=== PATIENT | female | born 1930 | race Caucasian/White ===

== ENCOUNTER → 2016-06-28 | Outpatient (CLI) | payer MEDICARE, BC ==
[~2016-06-28] MED LIST: ASPI-558 PO; BENA1TAB PO; CALC-22 DOB; FAMO20TA79 PO; FISH1CAP47 PO; GLUC-147 PO; LUTE20CA3 PO; NAPR220C11 PO; PRAV20TA48 PO; PROP80CA PO; SENN1TAB PO; VIT1CAPS21 PO; [UNRECOGNIZED DRUG - CODE] PO
== END ==
LOC: WC.BC 08:28
DX: Z12.31 Encounter for screening mammogram for malignant neoplasm of breast (principal); C50.911 Malignant neoplasm of unspecified site of right female breast; Z98.890 Other specified postprocedural states
CPT/HCPCS: 77063; G0202

== ENCOUNTER 2017-06-19 20:07 | Inpatient (IN) ==
[2017-06-19] MEDS ORDERED: HALOPERIDOL 5 MG/ML INJECTION IM PRN (20:58)
[2017-06-19] MEDS ORDERED: HALOPERIDOL 0.5 MG TABLET PO PRN (20:58)
[2017-06-19] MEDS ORDERED: LORazepam 0.5 MG TABLET PO PRN (20:58)
[2017-06-19 20:59] VITALS: BMI 24.0
[2017-06-19] MEDS: MIRTAZAPINE 15 MG TABLET PO SCH (21:15)
[2017-06-19] MEDS: PROPRANOLOL 20 MG TABLET PO SCH (21:15)
[2017-06-19] MEDS ORDERED: FALL RISK - PHARMACY CONSULT XX ONE ×2 (21:20)
[2017-06-19] MEDS: HYDROCODONE/APAP 5mg/325mg TABLET PO PRN (21:40)
[2017-06-20] MEDS: HYDROCODONE/APAP 5mg/325mg TABLET PO PRN ×3 (08:20→20:28)
[2017-06-20] MEDS: AMLODIPINE 10 MG TABLET PO SCH (09:35)
[2017-06-20] MEDS: BENAZEPRIL 20 MG TABLET PO SCH (09:36)
[2017-06-20] MEDS: PROPRANOLOL 20 MG TABLET PO SCH ×2 (09:36→20:27)
[2017-06-20] MEDS: FAMOTIDINE 20 MG TABLET PO SCH (09:36)
[2017-06-20] MEDS: ASPIRIN *EC* 81 MG TABLET PO SCH (09:52)
[2017-06-20] MEDS: ACETAMINOPHEN 325 MG TABLET PO PRN ×2 (11:09→19:20)
--- NOTE | 2017-06-20 12:38 | History & Physical Report ---
History of Present Illness Date: 06/20/17 Chief complaint: depression HPI: Patient is an 87-year-old female who was recently admitted acutely following a colonoscopy and rectal biopsy by Dr. Mims on 06/17/17 due to weakness and not being able to return to her assisted living facility. While on the surgical floor, she demonstrated significant signs of depression prompting the referral to [facility]. Patient is gaining some strength, but is refusing to eat at times and continues to appear significantly depressed. There is also some concern about vascular dementia per patient's son. Patient was seen in her room this morning following an attempt to use the bathroom. Nurses note the patient has not voided much since she has been in the [facility]. Bladder scan post void was greater than 999 mL. Patient will answer yes/no questions but will not elaborate. She denies pain at present. She had indicated previously while on the surgical unit that if she does have cancer , she does not wish to proceed with any treatment. She has indicated that she is ready to . Review of Systems All systems PM: 10-point ROS was reviewed, no additional remarkable complaints except (urinary retention) Past Medical History S/p colonoscopy/rectal bx by Dr. 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 Lymph node biopsy pending Hypokalemia (POA) Hyperlipidemia Hypertension GERD Chronic back pain Glaucoma History of breast cancer Hearing loss Macular degeneration Surgical History: Hysterectomy. Back Surgery, Lamenectomy 2002. Breast Biopsy / lumpectomy 2003. Hip Replacement 2007 Family History: Family History (Last Reviewed 06/10/17 @ 09:43 by Rosa Reed [facility]) Sister Cancer Family History Updates: reviewed - Social History Smoking status: Never smoker Medications Home Medications Medication Instructions Recorded Confirmed Type Famotidine [Pepcid] 20 mg PO DAILY #0 12/28/12 06/17/17 History Amlodipine [Norvasc] 10 mg PO DAILY 06/14/17 06/17/17 History Aspirin [Aspirin EC] 81 mg PO DAILY 06/14/17 06/17/17 History Beta-Carotene(A)-Vits C,E/Mins 1 tab PO DAILY 06/14/17 06/17/17 History [Vision Vitamins] Calcium Carbonate/Vitamin D3 1 tab PO DAILY 06/14/17 06/17/17 History [Calcium 600-Vit D3 800 Caplet] Ondansetron [Zofran Odt] 1 tab PO Q6HR PRN #30 tab 06/14/17 06/17/17 Rx Pravastatin [Pravachol] 20 mg PO DAILY 06/14/17 06/17/17 History Propranolol [Inderal] 20 mg PO BID 06/14/17 06/17/17 History Acetaminophen [Tylenol] 500 mg PO Q6H PRN tab 06/19/17 Rx Benazepril [Lotensin] 20 mg PO DAILY tab 06/19/17 Rx Hydrocodone/APAP 10/325 [[place] 1 tab PO QID PRN #20 tab 06/19/17 Rx 10/325] Mirtazapine [Remeron] 15 mg PO HS tab 06/19/17 Rx Senna + Docusate [Senna Plus 2 each PO HS #20 tab 06/19/17 Rx Tablet] Allergies Allergy/AdvReac Type Severity Reaction Status Date / Time Tetanus Vaccines and Toxoid Allergy Verified 06/17/17 09:08 Exam Vital Signs: Temperature 98.1 F 06/20/17 08:24 Pulse Rate 104 H 06/20/17 08:24 Respiratory Rate 22 06/20/17 08:24 Blood Pressure 152/95 H 06/20/17 08:24 Pulse Oximetry 97 06/20/17 08:24 Height/Weight/BMI: Height 1.63 m Weight 63.3 kg Body Mass Index 24.0 - Constitutional Present: no acute distress, well nourished, well developed - Routine HEENT Exam Head: Present: normocephalic, atraumatic - Routine Neck Exam Present: supple. Absent: lymphadenopathy, thyromegaly - Routine Respiratory Exam Present: CTA bilaterally. Absent: wheezes - Routine Cardiovascular Exam Present: RRR, no murmur - Routine Abdominal Exam Present: soft, normoactive bowel sounds, tenderness (suprapubic). Absent: distended - Routine Extremities Exam Present: no edema, normal capillary refill - Routine Skin Exam Present: dry, warm - Routine Neurological Exam Present: alert, CN II-XII intact, moving all extremities. Absent: tremors - Routine Psychiatric Exam Present: normal affect, cooperative Assessment and Plan (1) Rectal mass Current visit: No Status: Acute (2) Major depressive disorder Current visit: No Status: Acute Assessment and Plan: Assessment Situational depression. Generalized weakness following medical procedure S/p colonoscopy/rectal bx by Dr. 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 Lymph node biopsy pending Hyperlipidemia Urinary retention-POA Hypertension GERD Chronic back pain Glaucoma History of breast cancer Hearing loss Macular degeneration Plan Agree with admission to the [facility] Unit for psychiatric evaluation and treatment by Dr. Herron and to provide a safe environment. Continue to work with physical therapy. She is making gains. Pathology is resulted, but the lymph node biopsy is still pending. Pressure and pulse have been elevated since last evening. Given her recent move from surgical floor to [facility], will continue to monitor for now. She is currently on amlodipine, benazepril, and propranolol. Continue to monitor post void residual w/ straight cath if necessary. If she continues to need catheterization, will consider placing Acuña. Check urinalysis. Care to return to [facility]ue[facility] on dismissal. Resuscitation Status: Do Not Resuscitate - Physician Narrative Physician: Geneva Calvin MD Narrative: Date: 06/20/17 Time: 2029 I have independently evaluated and examined this patient. I reviewed the chart, the patient's history, and the [employer]ANUT PICKER/PA's documented findings as above. We discussed and formulated the assessment and plan as above with additions as below: Mrs. Paula's note from her acute hospitalization. Currently she reports no significant pain. She denies preceding dysuria or difficulty urinating but reports she gets she was having some. NAD, smiles occasionally, soft spoken but is interacting with less reluctance than she did 2 days ago Respirations nonlabored, breath sounds clear; regular cardiac rhythm Kyphotic, significant degenerative changes in the small joints of the hands Abdomen soft, nontender except mild suprapubic tenderness MAEW, power symmetric, mild tremor noted and greater with her arms outstretched in the right arm than the left; no cogwheeling (patient reports having previously been on medication for tremor) Sensation intact 4 extremities Pyuria noted however multiple epithelial cells also present in sample, nitrate negative. Given urinary retention which is new from acute hospitalization ( although may have been evolving tear based on nursing report provided today) Will treat with antibiotics and reassess. Patient is interacting more readily than she did 2 days ago. Results of pathology noted-adenocarcinoma of the colon metastatic to left inguinal lymph node. Hospital Course Summary Disclaimer: The visit summary below is not to be considered part of the above Progress Note. Hospital Course: 06/20/17-hospitalist consult Agree with admission to the [facility] Unit for psychiatric evaluation and treatment by Dr. Herron and to provide a safe environment. Continue to work with physical therapy. She is making gains. Pathology is resulted, but the lymph node biopsy is still pending. Pressure and pulse have been elevated since last evening. Given her recent move from surgical floor to [facility], will continue to monitor for now. She is currently on amlodipine, benazepril, and propranolol. Care to return to [facility]ue[facility] APR[facility] on dismissal. Addendum entered and electronically signed by Marizol Waterman APRN 06/20/17 17: 49: Patient has had 2 episodes of significant post-void urinary retention since arriving to [facility]. A Acuña was inserted and we will start bladder training in the morning. In addition, UA was positive for UTI and Keflex 500 mg BID was initiated. Urine culture was sent, so antibiotics may need further adjustment pending culture results.
--- NOTE | 2017-06-20 15:16 | 24 Hour Neuropsychiatic Eval ---
Date of Admission: 06/19/17 20:07 Chief complaint: "If I felt good I wouldn't be here" History of Present Illness: Patient is an 87-year-old , retired female who was admitted to [facility] on 06/19/17 for psychiatric evaluation and stabilization. Patient was recently diagnosed with a colon mass (likely cancer) and family reports cine then, she has become more depressed, stopped participating in cares , has decreased PO intake. There is some question as to whether patient attempted suicide because family found an empty [place] bottle -- it is not clear if patient intentionally did this or was just overusing medication. She frequently focuses on her pain meds since admission to our unit. On interview, patient is very hard of hearing and reports this affects her mood. Nursing staff attempting to arrange for patient's hearing aids to be brought to unit. Even when I speak loudly into her ear, she seems to frequently not understand what I am asking her. She says she is here because her kids wanted her to come and she is not sure why she was concerned. Though she denies SI, she has been talking about frequently since admission. She complains of pain all over and back pain. She states, "When I was well, I was happy." She denies any HI, AVH. Depression: Loss of Interest in Activities, Isolating Oneself From Friends and Family, Loss of Energy, Recurrent Thoughts of or Suicide, Changes in Appetite, Back Pain, Hopelessness, Unhappiness PFSH Patient Stated Medical History Dementia Yes Glaucoma Yes Hearing Loss Yes Macular Degeneration Yes Hypertension Yes Gastroesophageal Reflux Yes Disease Other GI Yes: rectal mass, current Clinic Medical History (Last Updated 06/10/17 @ 10:49 by Paula Eason APRN) Debility (Acute Medical) HTN (hypertension) (Acute Medical) Macular degeneration (Acute Medical) Memory loss (Acute Medical) Surgical History: Hysterectomy. Back Surgery, Lamenectomy 2002. Breast Biopsy / lumpectomy 2003. Hip Replacement 2007 Family History: Family History (Last Reviewed 06/10/17 @ 09:43 by NINFA Hall) Sister Cancer Family History Updates: reviewed - Social History Smoking status: Never smoker Substance use type: does not use Alcohol intake frequency: does not drink Current residence: Assisted Living Social history: Strengths: has supportive family, is able to express self verbally Review of Systems ROS unobtainable: other (Limited due to patient being very [place]; complains of back pain and "pain all over") - Psychiatric Psychiatric: Present: as per [facility] Mental Status Exam Vitals: Last Vital Signs Temp 98.1 F 06/20/17 08:24 Pulse 104 H 06/20/17 08:24 Resp 22 06/20/17 08:24 BP 152/95 H 06/20/17 08:24 Pulse Ox 97 06/20/17 08:24 Height: 1.63 m Weight: 63.3 kg - Mental Status Exam Muscle Strength/Tone: Weak Dressing: Casual Grooming: Fair Attitude: Guarded Motor Activity: Retardation Eye Contact: Poor Speech: Slowed Volume: Normal Rhythm: Appropriate Rhythm Sensory: Alert Orientation: Disoriented to time (able to name month/year), Oriented to person, Oriented to place Mood: Depressed Affect: Sad, Depressed Rate of Thoughts: Other (difficult to assess with [place]) Thought Organization: Organized Associations: Intact Abstract Reasoning: Poor abstract reasoning Thought Content: Ruminations, Hopelessness, Helplessness, Somatic Concerns Perception/Psychotic: Perception Normal Language: Naming Intact Fund of Knowledge: Other (decreased, difficult to fully assess with [place] - will do SLUMS) Memory: Poor-recent Suicidal Ideation: Other (Denies but frequently talks about , possible suicide attempt prior to admission) Homicidal Ideation: Denies Insight: Impaired Judgement: Impaired Impulse Control: Poor Assessment and Plan (1) Major depressive disorder, severe Problem details: R/O Mood disorder secondary to [facility] R/O Suicide attempt prior to admission R/O Opiate use disorder Current visit: Yes Status: Acute Agree with admission to [facility] for psychiatric evaluation and stabilization. Maintain safety and elopement precautions. Patient is a limited historian, will obtain further collateral from family. Plan to consult surgery so may have discussion with family/patient about goals of care and treatment options Standard labs on admission: CBC, CMP, TSH, Vitamin B12 and folate. Patient had CT scan shortly prior to admission. Continue Remeron 15mg PO q HS for the time being; will likely increase soon as long as patient is sleeping well.
--- NOTE | 2017-06-20 17:35 | General Surgery Consult Note ---
Consult date: 06/20/17 Attending Physician: Sylvia Ny MD Reason for consult: other (rectal mass) [facility] Patient Stated Medical History Dementia Yes Glaucoma Yes Hearing Loss Yes Macular Degeneration Yes Hypertension Yes Gastroesophageal Reflux Yes Disease Other GI Yes: rectal mass, current Clinic Medical History (Last Updated 06/10/17 @ 10:49 by Paula Eason APRN) Debility (Acute Medical) HTN (hypertension) (Acute Medical) Macular degeneration (Acute Medical) Memory loss (Acute Medical) Surgical History: Hysterectomy. Back Surgery, Lamenectomy 2002. Breast Biopsy / lumpectomy 2003. Hip Replacement 2007. Colonoscopy and biopsy rectal mass Felicita Family History: Family History (Last Reviewed 06/10/17 @ 09:43 by NINFA Hall) Sister Cancer Family History Updates: reviewed - Social History Smoking status: Never smoker Substance use type: does not use Alcohol intake frequency: does not drink Housing: assisted living facility Household members: spouse (has been recently placed in more advanced care [place] away from [facility]) Current residence: Assisted Living Medications Home Medications Medication Instructions Recorded Confirmed Type Famotidine [Pepcid] 20 mg PO DAILY #0 12/28/12 06/17/17 History Amlodipine [Norvasc] 10 mg PO DAILY 06/14/17 06/17/17 History Aspirin [Aspirin EC] 81 mg PO DAILY 06/14/17 06/17/17 History Beta-Carotene(A)-Vits C,E/Mins 1 tab PO DAILY 06/14/17 06/17/17 History [Vision Vitamins] Calcium Carbonate/Vitamin D3 1 tab PO DAILY 06/14/17 06/17/17 History [Calcium 600-Vit D3 800 Caplet] Ondansetron [Zofran Odt] 1 tab PO Q6HR PRN #30 tab 06/14/17 06/17/17 Rx Pravastatin [Pravachol] 20 mg PO DAILY 06/14/17 06/17/17 History Propranolol [Inderal] 20 mg PO BID 06/14/17 06/17/17 History Acetaminophen [Tylenol] 500 mg PO Q6H PRN tab 06/19/17 Rx Benazepril [Lotensin] 20 mg PO DAILY tab 06/19/17 Rx Hydrocodone/APAP 10/325 [[place] 1 tab PO QID PRN #20 tab 06/19/17 Rx 10/325] Mirtazapine [Remeron] 15 mg PO HS tab 06/19/17 Rx Senna + Docusate [Senna Plus 2 each PO HS #20 tab 06/19/17 Rx Tablet] Allergies Allergy/AdvReac Type Severity Reaction Status Date / Time Tetanus Vaccines and Toxoid Allergy Verified 06/17/17 09:08 Review of Systems 10-point ROS: negative except for HPI and the following: - Eyes/Ears/Nose/Throat Ear Nose Throat: Present: hearing problems - Gastrointestinal Gastrointestinal: Present: blood in stools (rectal mass,), other (poor appetite , rectal pain) - Genitourinary Females Only: Present: other (urinary retention) - Musculoskeletal Musculoskeletal: Present: back pain, joint pain - Neurological Neurological: Present: muscle weakness - Psychiatric Psychiatric: Present: depression, thought of suicide (possibly) - Hematologic/Lymphatic Hematologic/Lymphatic: Present: easy bruising - Vital Signs Last Vital Signs Temp 98.3 F 06/20/17 16:00 Pulse 80 06/20/17 16:00 Resp 18 06/20/17 16:00 BP 123/73 06/20/17 16:00 Pulse Ox 95 06/20/17 16:00 Hospital Course Summary Disclaimer: The visit summary below is not to be considered part of the above Progress Note. Hospital Course: 06/20/17-hospitalist consult Agree with admission to the [facility] for psychiatric evaluation and treatment by Dr. Herron and to provide a safe environment. Continue to work with physical therapy. She is making gains. Pathology is resulted, but the lymph node biopsy is still pending. Pressure and pulse have been elevated since last evening. Given her recent move from surgical floor to [facility], will continue to monitor for now. She is currently on amlodipine, benazepril, and propranolol. Care to return to [facility] on dismissal.
[2017-06-20] MEDS: PRAVASTATIN 20 MG TABLET PO SCH (20:27)
[2017-06-20] MEDS: MIRTAZAPINE 15 MG TABLET PO SCH (20:27)
[2017-06-20] MEDS: SENNA + DOCUSATE TABLET PO SCH (20:37)
[2017-06-21] MEDS: HYDROCODONE/APAP 5mg/325mg TABLET PO PRN (02:27)
[2017-06-21] MEDS: FAMOTIDINE 20 MG TABLET PO SCH (08:06)
[2017-06-21] MEDS: PROPRANOLOL 20 MG TABLET PO SCH ×2 (08:06→20:08)
[2017-06-21] MEDS: AMLODIPINE 10 MG TABLET PO SCH (08:06)
[2017-06-21] MEDS: ASPIRIN *EC* 81 MG TABLET PO SCH (08:06)
[2017-06-21] MEDS: BENAZEPRIL 20 MG TABLET PO SCH (08:06)
[2017-06-21] MEDS: SENNA + DOCUSATE TABLET PO SCH ×2 (08:14→20:09)
[2017-06-21] MEDS ORDERED: HYDROCODONE/APAP 5mg/325mg TABLET PO PRN (08:24)
--- NOTE | 2017-06-21 08:50 | Pharmacy Consult ---
Pharmacy Consult-Other Meds - Consult Information SHABNAM Jo called because patient was concerne about not receiving her EYE VITAMIN. I recommended out eye vitamin, Ocuvite (generic)., for the duratoin of the patient stay. Thanks, Russ Pederson, Pharmacist.
--- NOTE | 2017-06-21 10:06 | General Surgery Progress Note ---
Subjective Narrative: Visiting with Marie last evening, she is informed that the colonoscopy rectal biopsy did return as a cancer as well as the lymph node biopsy showed metastasis. She did not respond when told this information. - Vital Signs Last Vital Signs Temp 97.8 F 06/21/17 08:00 Pulse 112 H 06/21/17 08:00 Resp 18 06/21/17 08:00 BP 130/87 06/21/17 08:00 Pulse Ox 97 06/21/17 08:00 - Laboratory Result Diagrams: 06/21/17 06:58 06/21/17 06:58 - Microbiogy Microbiology 06/20/17 17:09 Urine, Voided (Cc/notcc) Urine Culture - Preliminary Culture Initiated - Results Pending Hospital Course Summary Disclaimer: The visit summary below is not to be considered part of the above Progress Note. Hospital Course: 06/20/17-hospitalist consult Agree with admission to the [facility] Unit for psychiatric evaluation and treatment by Dr. Herron and to provide a safe environment. Continue to work with physical therapy. She is making gains. Pathology is resulted, but the lymph node biopsy is still pending. Pressure and pulse have been elevated since last evening. Given her recent move from surgical floor to [facility], will continue to monitor for now. She is currently on amlodipine, benazepril, and propranolol. Care to return to [facility] Guevara APRN on dismissal.
--- NOTE | 2017-06-21 14:05 | Neuropsych Progress Note ---
[facility] Subjective Date: 06/21/17 - Sujective/Severity of Illness Medications: Acetaminophen (Tylenol) 325 - 650 mg PO Q5H PRN PRN Reason: Discomfort Last Admin: 06/20/17 19:20 Dose: 650 mg Hydrocodone Bitart/Acetaminophen ([place] 5/325) 1 - 2 tab PO Q6H PRN PRN Reason: Pain Last Admin: 06/21/17 09:22 Dose: 2 tab Amlodipine Besylate (Norvasc) 10 mg PO DAILY [facility] Last Admin: 06/21/17 08:06 Dose: 10 mg Aspirin (Ecotrin) 81 mg PO DAILY [facility] Last Admin: 06/21/17 08:06 Dose: 81 mg Benazepril HCl (Lotensin) 20 mg PO DAILY [facility] Last Admin: 06/21/17 08:06 Dose: 20 mg Cephalexin HCl (Keflex 500 Mg) 500 mg PO Q12HR [facility] Last Admin: 06/21/17 08:06 Dose: 500 mg Famotidine (Pepcid) 20 mg PO DAILY [facility] Last Admin: 06/21/17 08:06 Dose: 20 mg Haloperidol (Haldol) 0.5 mg PO Q6H PRN PRN Reason: Extreme agitation Haloperidol Lactate (Haldol) 0.5 mg IM Q6H PRN PRN Reason: Extreme agitation Lorazepam (Ativan) 0.5 mg PO Q6H PRN PRN Reason: Extreme agitation Last Admin: 06/19/17 21:40 Dose: 0.5 mg Lorazepam (Ativan Inj) 0.5 mg IM Q6H PRN PRN Reason: Extreme agitation Mirtazapine (Remeron) 15 mg PO HS [facility] Last Admin: 06/20/17 20:27 Dose: 15 mg Multivitamins/Minerals (Vision) 1 tab PO DAILY [facility] Pravastatin Sodium (Pravachol) 20 mg PO [facility] Last Admin: 06/20/17 20:27 Dose: 20 mg Propranolol HCl (Inderal) 20 mg PO BID [facility] Last Admin: 06/21/17 08:06 Dose: 20 mg Senna/Docusate Sodium (Senna Plus Tablet) 2 tab PO BID [facility] Last Admin: 06/21/17 08:14 Dose: 2 tab Subjective: Patient chart reviewed. Patient sleeping soundly at time of rounds. Nursing staff reports she has had significant pain and has refused to use her hearing aids though available. She has otherwise been cooperative with no significant behavioral difficulties. She has talked a lot about wanting to and having a poor quality of life with impaired hearing and vision. She has been adherent with medications. No psychotropic PRNs required in past 24 hours. I also spoke with son/DPOA and reviewed note from surgery, as well as treatment of her depression. He would like to discuss prognosis with the surgery team but states they are likely leaning towards Hospice consult. Start Time: 11:00 Stop Time: 11:20 Mental Status Exam Vitals: Last Vital Signs Temp 97.8 F 06/21/17 08:00 Pulse 112 H 06/21/17 08:00 Resp 18 06/21/17 08:00 BP 130/87 06/21/17 08:00 Pulse Ox 97 06/21/17 08:00 Height: 1.63 m Weight: 63.1 kg - Mental Status Exam Muscle Strength/Tone: Weak Dressing: Casual Grooming: Fair Attitude: Guarded Motor Activity: Retardation Eye Contact: Poor Speech: Slowed Volume: Normal Rhythm: Appropriate Rhythm Orientation: Disoriented to time (able to name month/year), Oriented to person, Oriented to place Mood: Depressed Affect: Depressed Rate of Thoughts: Other (difficult to assess with LUMMI) Thought Organization: Organized Associations: Intact Abstract Reasoning: Poor abstract reasoning Thought Content: Ruminations, Hopelessness, Helplessness, Somatic Concerns Perception/Psychotic: Perception Normal Language: Naming Intact Fund of Knowledge: Other (decreased, difficult to fully assess with LUMMI - will do SLUMS) Memory: Poor-recent Suicidal Ideation: Other (Denies but frequently talks about , possible suicide attempt prior to admission) Homicidal Ideation: Denies Insight: Impaired Judgement: Impaired Impulse Control: Poor - Laboratory Result Diagrams: 06/21/17 06:58 06/21/17 06:58 Laboratory Results - last 24 hr 06/20/17 06/21/17 06/21/17 17:09 06:58 06:58 WBC 6.9 RBC 3.69 L Hgb 11.5 L Hct 34.9 L MCV 94.6 MCH 31.2 MCHC 33.0 RDW Std Deviation 44.1 Plt Count 371 MPV 8.2 L Immature Gran % (Auto) 0.1 Neut % (Auto) 70.0 H Lymph % (Auto) 16.6 L [place] % (Auto) 9.3 H Eos % (Auto) 3.6 Baso % (Auto) 0.4 Neut # (Auto) 4.8 Lymph # (Auto) 1.1 [place] # (Auto) 0.6 Eos # (Auto) 0.3 Baso # (Auto) 0.0 Abs Immat Gran (auto) 0.01 Turbidity < 20 Sodium 141 Potassium 3.8 Chloride 103 Carbon Dioxide 29 Anion Gap 9 BUN 11.0 Creatinine 0.5 L GFR Calculation 117 BUN/Creatinine Ratio 22 Glucose 133 H Calculated Osmolality 272 Calcium 9.2 Icterus Index < 2 Specimen Hemolysis < 15 Ur Collection Type Urine, void-cc/notcc Urine Color Yellow Urine Clarity Cloudy Urine pH 7.0 Ur Specific [place] 1.010 L Urine Protein Negative Urine Glucose (UA) Negative Urine Ketones Trace A Urine Occult Blood 2+ A Urine Nitrate Negative Urine Bilirubin Negative Urine Urobilinogen 0.2 Ur Leukocyte Esterase 2+ A Urine RBC 10-20 H Urine WBC 10-20 H Ur Squamous Epith Cells >50 Urine Bacteria 2+ H Ur Culture Indicated? Cult reflexed &setup Assessment and Plan (1) Major depressive disorder, severe Problem details: R/O Mood disorder secondary to [facility] R/O Suicide attempt prior to admission R/O Opiate use disorder Current visit: Yes Status: Acute Continue current care; son/DPIRINA is requesting to speak with surgery team ( notified) and considering Hospice consult after that conversation. Hospital Course Summary Disclaimer: The visit summary below is not to be considered part of the above Progress Note. Hospital Course: 06/20/17-hospitalist consult Agree with admission to the [facility] for psychiatric evaluation and treatment by Dr. Herron and to provide a safe environment. Continue to work with physical therapy. She is making gains. Pathology is resulted, but the lymph node biopsy is still pending. Pressure and pulse have been elevated since last evening. Given her recent move from surgical floor to [facility], will continue to monitor for now. She is currently on amlodipine, benazepril, and propranolol. Care to return to [facility] on dismissal. 06/20/17 Psych: Continue Remeron, await surgery consult. 06/21/17 Psych: Continue current care; son/DPIRINA is requesting to speak with surgery team (notified) and considering Hospice consult after that conversation.
--- NOTE | 2017-06-21 16:07 | Progress Note ---
Progress Note: Pt requesting her "eye vitamin." Ocuvite is ordered. Dr. Ny decreased pt 's pain meds, but nurses report her pain has not seemed controlled overnight. This am her was changed to [place] 5, 1-2 q 6 hrs prn. Nursing reminded not to exceed 4gm of acetaminophen. Later this afternoon nurses are reporting pt's pain med isn't holding the full 6 hrs, will change to [place] 10 and give q 4 hrs. She had to be straight cathed twice yesterday with large volume PVR's, so tabares was placed. UA was consistent with infection and keflex was initiated. Bladder training was initiated today. Will plan to DC tabares tomorrow. Dr Herron has discussed cancer dx with family and surgery team has relayed information to patient. Family plans to talk to surgery to make final decisions.
--- NOTE | 2017-06-21 16:18 | Consultation ---
DATE OF CONSULTATION 06/21/2017 FINDINGS Mrs. Paula is an 87-year-old female who is known to my surgical practice. I was asked to see the patient today in regards to her known rectal mass. Patient currently is on our [facility] as a result of situational depression. The patient was eating lunch upon my arrival. She did communicate with me appropriately. Apparently over the last couple of days, she has been fairly nonverbal. The patient stated she was experiencing pain within the perianal region. She did elude that she did not want to have anything done during our brief discussion today. The patient was at a table with other patients and therefore the interview process and discussion was fairly limited for privacy purposes. PAST MEDICAL HISTORY Performed by my nurse practitioner, Dami Eason. PAST SURGICAL HISTORY Performed by my nurse practitioner, Dami Eason. MEDICATIONS Performed by my nurse practitioner, Dami Eason. ALLERGIES Performed by my nurse practitioner, Dami Eason. SOCIAL HISTORY Performed by my nurse practitioner, Dami Eason. FAMILY HISTORY Performed by my nurse practitioner, Dami Eason. REVIEW OF SYSTEMS Performed by my nurse practitioner, Dami Eason. PHYSICAL EMANATION GENERAL: Mrs. Paula is an 87-year-old female who this afternoon did not appear to be in acute distress and was in fairly good spirits and did communicate appropriately during the interview process. VITALS: Temperature 97.8. Pulse 112. Respirations 18. Blood pressure 130/ 87. SaO2 97% on room air. HEENT: Normocephalic. Pupils are equally round and react to light and accommodation. NECK: Supple without lymphadenopathy. CHEST: Clear to auscultation bilaterally. HEART: Regular rate and rhythm. Normal S1, S2, without gallops, murmurs or clicks. ABDOMEN: Palpation of the abdomen reveals it to be soft and nontender. I do not appreciate any evidence for hepatosplenomegaly nor abnormal masses. EXTREMITIES: Without clubbing, cyanosis, or edema. NEURO: Cranial nerves II-XII grossly intact. Patient without focal, motor, or sensory deficits. LABORATORY/RADIOGRAPHIC EVALUATION I did review my biopsies performed upon her colonoscopy as well as from the fine -needle aspiration. She does have an invasive adenocarcinoma involving the anal canal/distal rectum. She also had several lesions beyond the anal verge upon the buttock region that were also biopsied and returned as invasive moderately differentiated adenocarcinoma. Furthermore the fine needle aspiration from the enlarged left inguinal lymph nodes also returned revealing adenocarcinoma consistent with metastatic disease. I reviewed her CT scan of her head, chest, abdomen and pelvis. One could see some thickening along the left lateral wall but there was no evidence for gross metastatic disease. Visualization of the pelvis was somewhat limited as a result of artifact from associated hardware. ASSESSMENT 87-year-old female with metastatic invasive rectal adenocarcinoma. PLAN I do see that the patient is having some urinary issues. It is my intuition that she may have some involvement of her bladder with this tumor resulting in some difficulty with her urination. I do see that she currently has indwelling Acu[place] catheter and was placed on antibiotics. I have reviewed admission history and physical to the [facility] as well as additional notes. I have reviewed prior pathology report and radiographic results as stated above. At this time, I informed the patient that I will try to come back at a later time when she is in her room and we can have more of a private discussion. Hopefully there will be some family members present as well so that further discussion can be undertaken in regards to how we are going to proceed with this newly diagnosed metastatic adenocarcinoma involving her rectum. One option may be just to obtain hospice and focus on the quality of her life that is remaining. Her rectal cancer is not near obstructing at this juncture in time and therefore I do not feel that surgical intervention is imminent at this time. The other option of course would be to proceed with chemo/radiation given her diagnosis and apparent localized disease to her pelvis. If the patient is having a component of some perianal leakage, one may wish to apply some Calmoseptine to the perianal region to provide as a skin barrier. I will try to come back at a later time and have further discussion with the patient and family. BRI
[2017-06-21] MEDS: MULTI-VIT + MINERAL (Opti-gen) TABLET PO SCH (16:22)
[2017-06-21] MEDS: HYDROCODONE/APAP 10 MG/325 MG TABLET PO PRN ×2 (16:22→20:09)
[2017-06-21] MEDS: PRAVASTATIN 20 MG TABLET PO SCH (20:08)
[2017-06-21] MEDS: MIRTAZAPINE 15 MG TABLET PO SCH (20:08)
[2017-06-22] MEDS: MULTI-VIT + MINERAL (Opti-gen) TABLET PO SCH (09:22)
[2017-06-22] MEDS: BENAZEPRIL 20 MG TABLET PO SCH (09:22)
[2017-06-22] MEDS: FAMOTIDINE 20 MG TABLET PO SCH (09:22)
[2017-06-22] MEDS: ASPIRIN *EC* 81 MG TABLET PO SCH (09:22)
[2017-06-22] MEDS: AMLODIPINE 10 MG TABLET PO SCH (09:22)
[2017-06-22] MEDS: HYDROCODONE/APAP 10 MG/325 MG TABLET PO PRN ×3 (09:23→19:54)
[2017-06-22] MEDS: SENNA + DOCUSATE TABLET PO SCH ×3 (09:23→20:55)
--- NOTE | 2017-06-22 12:29 | Neuropsych Progress Note ---
[facility] Subjective Date: 06/22/17 - Sujective/Severity of Illness Medications: Acetaminophen (Tylenol) 325 - 650 mg PO Q5H PRN PRN Reason: Discomfort Last Admin: 06/20/17 19:20 Dose: 650 mg Hydrocodone Bitart/Acetaminophen ([place] 10/325) 1 tab PO Q4H PRN PRN Reason: Pain Last Admin: 06/22/17 09:23 Dose: 1 tab Amlodipine Besylate (Norvasc) 10 mg PO DAILY [facility] Last Admin: 06/22/17 09:22 Dose: 10 mg Aspirin (Ecotrin) 81 mg PO DAILY [facility] Last Admin: 06/22/17 09:22 Dose: 81 mg Benazepril HCl (Lotensin) 20 mg PO DAILY [facility] Last Admin: 06/22/17 09:22 Dose: 20 mg Cephalexin HCl (Keflex 500 Mg) 500 mg PO Q12HR [facility] Last Admin: 06/22/17 09:22 Dose: 500 mg Famotidine (Pepcid) 20 mg PO DAILY [facility] Last Admin: 06/22/17 09:22 Dose: 20 mg Haloperidol (Haldol) 0.5 mg PO Q6H PRN PRN Reason: Extreme agitation Haloperidol Lactate (Haldol) 0.5 mg IM Q6H PRN PRN Reason: Extreme agitation Lorazepam (Ativan) 0.5 mg PO Q6H PRN PRN Reason: Extreme agitation Last Admin: 06/19/17 21:40 Dose: 0.5 mg Lorazepam (Ativan Inj) 0.5 mg IM Q6H PRN PRN Reason: Extreme agitation Mirtazapine (Remeron) 15 mg PO HS [facility] Last Admin: 06/21/17 20:08 Dose: 15 mg Multivitamins/Minerals (Vision) 1 tab PO DAILY [facility] Last Admin: 06/22/17 09:22 Dose: 1 tab Pravastatin Sodium (Pravachol) 20 mg PO HS [facility] Last Admin: 06/21/17 20:08 Dose: 20 mg Propranolol HCl (Inderal) 40 mg PO BID [facility] Senna/Docusate Sodium (Senna Plus Tablet) 2 tab PO BID [facility] Last Admin: 06/22/17 09:23 Dose: Not Given Subjective: Patient seen and chart reviewed. Patient is irritable through interview and feels her pain is not being well-controlled. She says she is aware she has cancer and she would like comfort care, she doesn't want to treat it. She continues to talk about dying frequently but has not made any acts or threats of self-harm. Had a brief episode of agitation with nursing staff yesterday but then calmed quickly. Slept 9 hours overnight. SLUMS 10/31. No psychotropic PRNs required in past 24 hours. I spoke with Dr. Mims who said he did discuss prognosis with patient's son/ DPOA yesterday and he is also agreeable to Hospice consult. Start Time: 13:00 Stop Time: 13:20 Mental Status Exam Vitals: Last Vital Signs Temp 98.8 F 06/22/17 08:00 Pulse 121 H 06/22/17 08:00 Resp 18 06/22/17 08:00 BP 122/76 06/22/17 08:00 Pulse Ox 94 06/22/17 08:00 Height: 1.63 m Weight: 63.2 kg - Mental Status Exam Muscle Strength/Tone: Weak Dressing: Casual Grooming: Fair Attitude: Tense Motor Activity: Retardation Eye Contact: Poor Speech: Slowed Volume: Normal Rhythm: Appropriate Rhythm Orientation: Disoriented to time (able to name month/year), Oriented to person, Oriented to place Mood: Depressed Affect: Angry Rate of Thoughts: Delayed Thought Organization: Organized Associations: Intact Abstract Reasoning: Poor abstract reasoning Thought Content: Ruminations, Hopelessness, Helplessness, Somatic Concerns Perception/Psychotic: Perception Normal Language: Naming Intact Fund of Knowledge: Poor fund of knowledge Memory: Poor-immediate, Poor-recent Suicidal Ideation: Other (Denies but frequently talks about , possible suicide attempt prior to admission) Homicidal Ideation: Denies Insight: Impaired Judgement: Impaired Impulse Control: Poor - Laboratory Result Diagrams: 06/21/17 06:58 06/21/17 06:58 Assessment and Plan (1) Major depressive disorder, severe Problem details: Other medical conditions: metastatic colon cancer R/O Mood disorder secondary to [facility] [place] R/O Suicide attempt prior to admission R/O Opiate use disorder Current visit: Yes Status: Acute Patient and son/DPOA in agreement with Hospice consult; CM to arrange. Hospital Course Summary Disclaimer: The visit summary below is not to be considered part of the above Progress Note. Hospital Course: 06/20/17-hospitalist consult Agree with admission to the [facility] for psychiatric evaluation and treatment by Dr. Herron and to provide a safe environment. Continue to work with physical therapy. She is making gains. Pathology is resulted, but the lymph node biopsy is still pending. Pressure and pulse have been elevated since last evening. Given her recent move from surgical floor to [facility], will continue to monitor for now. She is currently on amlodipine, benazepril, and propranolol. Care to return to [facility] on dismissal. 06/20/17 Psych: Continue Remeron, await surgery consult. 06/21/17 Psych: Continue current care; son/DPOA is requesting to speak with surgery team (notified) and considering Hospice consult after that conversation. 06/22/17 Psych: Patient and son/DPOA in agreement with Hospice consult; CM to arrange.
--- NOTE | 2017-06-22 14:17 | Progress Note ---
- Date 06/22/17 Subjective: Patient seen resting in bed this afternoon. She states her pain is better controlled today, but she still has pain. It is worse when she is sitting. Describes the pain as "in my bottom and lower back." Stools are very loose. States she has no significant pain with BM's b/c "they run right out of me." NO CP, SOA, nausea or vomiting. Discussed taking her catheter out this afternoon and she is very happy to have this done. Objective Vital signs: Temperature 98.8 F 06/22/17 08:00 Pulse Rate 121 H 06/22/17 08:00 Respiratory Rate 18 06/22/17 08:00 Blood Pressure 122/76 06/22/17 08:00 Pulse Oximetry 94 06/22/17 08:00 Height/Weight/BMI: Height 1.63 m Weight 63.2 kg Body Mass Index 24.0 - Constitutional Present: no acute distress, well nourished, well developed - Routine HEENT Exam Head: Present: normocephalic, atraumatic - Routine Respiratory Exam Present: CTA bilaterally. Absent: wheezes - Routine Cardiovascular Exam Present: RRR, no murmur - Routine Abdominal Exam Present: soft, non distended, non tender - Routine Extremities Exam Present: no edema, normal capillary refill - Routine Skin Exam Present: dry, warm - Routine Neurological Exam Present: alert, normal speech - Routine Lymphatic Exam Lymphatic: Absent: adenopathy - Routine Psychiatric Exam Present: cooperative, depressed Results - Labs CBC & Chem 7: 06/21/17 06:58 06/21/17 06:58 Microbiology Results: Microbiology 06/20/17 17:09 Urine, Voided (Cc/notcc) Urine Culture - Final Mixed Bacterial [place] Assessment and Plan (1) Rectal mass Current visit: No Status: Acute (2) Major depressive disorder Current visit: No Status: Acute Assessment and Plan: Assessment Situational depression. Generalized weakness following medical procedure S/p colonoscopy/rectal bx by Dr. Mmis Grade 2 invasive moderately-differentiated colonic adenocarcinoma- no evidence of mets on CT head/chest/abd/pelvis. Lymph node biopsy pending Hyperlipidemia Urinary retention-POA Hypertension GERD Chronic back pain Glaucoma History of breast cancer Hearing loss Macular degeneration Plan DC Tabares today. Hoping that infection may have been the cause of her retention and she'll be able to void w/o catheter. Nurse will bladder scan periodically and if pt continues to need straight cath, will reinsert tabares. Dr. Mims mentioned in his note that there could be tumor contributing to the urinary issues. Patient continues on cephalexin. Culture was >100,000 mixed bacterial [place] with no susceptibilities performed. Will complete a 5 days course of atbx. Continue current pain regimen ([place] 10 q 4-6 hrs prn), if pain is not controlled, can add additional medication. It sounds like she'll likely be discharging home w/ hospice. - Physician Narrative Narrative: Date: 06/22/17 Time: 1409 Hospital Course Summary Disclaimer: The visit summary below is not to be considered part of the above Progress Note. Hospital Course: 06/20/17-hospitalist consult Agree with admission to the [facility] for psychiatric evaluation and treatment by Dr. Herron and to provide a safe environment. Continue to work with physical therapy. She is making gains. Pathology is resulted, but the lymph node biopsy is still pending. Pressure and pulse have been elevated since last evening. Given her recent move from surgical floor to [facility], will continue to monitor for now. She is currently on amlodipine, benazepril, and propranolol. Care to return to [facility] on dismissal. 06/20/17 Psych: Continue Remeron, await surgery consult. 06/21/17 Psych: Continue current care; son/DPOA is requesting to speak with surgery team (notified) and considering Hospice consult after that conversation.
[2017-06-22] MEDS: ACETAMINOPHEN 325 MG TABLET PO PRN (19:27)
[2017-06-22] MEDS: MIRTAZAPINE 15 MG TABLET PO SCH ×2 (19:54→20:54)
[2017-06-22] MEDS: PROPRANOLOL 20 MG TABLET PO SCH ×2 (19:54→20:54)
[2017-06-22] MEDS: PRAVASTATIN 20 MG TABLET PO SCH ×2 (19:55→20:54)
[2017-06-23] MEDS: HYDROCODONE/APAP 10 MG/325 MG TABLET PO PRN ×4 (00:07→14:41)
[2017-06-23] MEDS: SENNA + DOCUSATE TABLET PO SCH (08:17)
[2017-06-23] MEDS: ASPIRIN *EC* 81 MG TABLET PO SCH (08:18)
[2017-06-23] MEDS: BENAZEPRIL 20 MG TABLET PO SCH (08:18)
[2017-06-23] MEDS: FAMOTIDINE 20 MG TABLET PO SCH (08:18)
[2017-06-23] MEDS: AMLODIPINE 10 MG TABLET PO SCH (08:18)
[2017-06-23] MEDS: MULTI-VIT + MINERAL (Opti-gen) TABLET PO SCH (08:18)
[2017-06-23] MEDS: PROPRANOLOL 20 MG TABLET PO SCH (08:26)
[2017-06-23 08:51] VITALS: BP 135/82; PULSE 108; RESP 16; TEMP 98; O2SAT 96
--- NOTE | 2017-06-23 10:00 | Progress Note ---
Progress Note: Pt discharging to [facility] with [facility]. Meds reconciled.
--- NOTE | 2017-06-23 15:09 | Extended Care Facility Orders ---
Admission Orders Admit to:: Hospice Allergies/Adverse Reactions: Allergies Tetanus Vaccines and Toxoid Allergy (Verified 06/17/17 09:08) Admitting Diagnosis: Major depresssive disorder Admitting Physician: Sylvia Ny MD Attending Physician: Sylvia Ny MD Code Status: Do Not Resuscitate Anticiapted Length of Stay: greater than 30 days Rehab Potential: poor Rehab Prognosis: poor Diet: 06/19/17 Breakfast Regular Diet [DIET] Diet Modifications: May have flu vaccine: Yes Evaluations/Treatment: Psychiatric Jail Certification: I certify that SNF services are required to be given on an Inpatient basis because of the patients need for half-way care on a continuing basis for the condition(s) for which he/she received inpatient hospital services prior to his/her transfer to the SNF. SNF inpatient care is necessary for the following reasons Indication for Jail: Not Applicable - Additional Information In Event of Arrest: Do Not Start CPR Resident is Aware of Diagnosis: Yes Referrals: Hospice, [facility] [Other] (No Hospital or Mental Health follow-up appts. scheduled, due to patient receiving Hospice services.)
[2017-06-23] MEDS ORDERED: PRAVASTATIN 10 MG TABLET PO SCH (21:00)
== END 2017-06-23 16:00 | disposition hospice, home (50) | DRG 881 ==
LOC: GEN 20:07
PROVIDERS: ADMIT Psychiatry & Neurology Psychiatry; ATTEND Psychiatry & Neurology Psychiatry